=== PATIENT | female | born 1980 | race Caucasian/White ===

== ENCOUNTER → 2025-02-20 | Outpatient (CLI) | payer MEDICAID, MEDICARE, SELFPAY | END | disposition home or self-care (01) | PROVIDERS: Referring Provider Podiatrist; Visit Provider Podiatrist | DX: L97.522 Non-pressure chronic ulcer of other part of left foot with fat layer exposed (principal); L97.512 Non-pressure chronic ulcer of other part of right foot with fat layer exposed | CPT/HCPCS: 87070; 87077; 87186; 87205 ==

== ENCOUNTER 2025-03-01 14:39 | Outpatient (RCR) | payer MEDICARE, MEDICAID, SELFPAY ==
--- NOTE | 2025-03-01 15:40 | WC ---
PHOTO 03/01/25 2ND L LAT TOE
--- NOTE | 2025-03-01 15:41 | WC ---
PHOTO 03/01/25 LEFT 4TH MED TOE
--- NOTE | 2025-03-03 18:18 | PCM.WC.HP ---
History of Present Illness Date of Service: 03/03/25 Chief Complaint: Left foot ulceration History of Wound: Left foot ulceration Progress of Wound: Patient is a 44-year-old diabetic female presenting with concern with a chief complaint of left toe ulceration and fissure to the fourth webspace left lower extremity. Patient was seen at a private office and sent to the [facility] for evaluation and treatment. She has been on doxycycline 100 mg twice daily for the past few days but has a 2-week course. Patient states that her blood sugars well-controlled. No real treatment thus far except for triple antibiotic to the full-thickness wound to the left second toe. She denies any redness or drainage. She denies trauma. Denies constitutional symptoms. No acute complaints at this time. FORMERLY [facility], [facility] Medical History DM type 2 (diabetes mellitus, type 2) Arthritis MRSA (methicillin resistant Staphylococcus aureus) infection Home Medications ?Medication ?Instructions ?Recorded ?Last Taken ?Type buspirone 5 mg tablet 5 mg PO BID 02/24/25 Unknown History cariprazine 1.5 mg capsule 1.5 mg PO QDAY 02/24/25 Unknown History (Vraylar) dexamethasone 1.5 mg tablet 1.5 mg PO QDAY 02/24/25 Unknown History nortriptyline 10 mg capsule 10 mg PO QDAY 02/24/25 Unknown History furosemide 20 mg tablet 20 mg PO DAILY 03/01/25 Unknown History levothyroxine 175 mcg tablet PO 03/01/25 Unknown History potassium chloride 10 mEq 10 meq PO DAILY 03/01/25 Unknown History tablet,extended release(part/cryst) Allergy/AdvReac Type Severity Reaction Status Date / Time codeine Allergy NEEDS Verified 03/01/25 15:03 FOLLOW-UP metformin Allergy NEEDS Verified 03/01/25 15:03 FOLLOW-UP Social History Smoking Status: Former smoker Physical Exam Narrative Vascular: DP and PT pulses are palpable to the bilateral lower extremity. CFT is brisk. No erythema. Skin temperature is warm to warm from proximal ankles to distal digits no focal increase is appreciated. Neurological: Light touch intact. Patient does respond to painful stimuli. Protective station is diminished to the digits but reestablished at the midfoot and ankle. Dermatological: Evidence of full-thickness wound to the left second digit measuring 0.5 x 0.4 x 0.1 cm. Wound base is granular with no sign of infection. No blanchable erythema is appreciated to the left foot. Noticeable fissure to the fourth webspace stable with no sign of infection. Excisional debridement down to including subcutaneous tissue with a number 3 mm dermal curette to the left second digit done without incident. Predebridement measurement was 0.3 x 0.3 x 0.1 cm. Postdebridement measurement 0.5 x 0.4 x 0.1 cm. Musculoskeletal: Muscle strength 5-5 in all quadrants bilateral. No pain to palpation to the left foot full-thickness wounds. No pain with calf compression. Debridement Note Debridement Note Debridement Free Text: Excisional debridement down to including subcutaneous tissue with a number 3 mm dermal curette to the left second digit done without incident. Predebridement measurement was 0.3 x 0.3 x 0.1 cm. Postdebridement measurement 0.5 x 0.4 x 0.1 cm. Post-Debridement Measurements and Additional Note: Post-Debridement Measurements/Treatment - Nurse 1 - General Ulcer Assessment Start: 03/01/25 14:47 Freq: Status: Active Protocol: PRASANTH Activity Type Activity Date Activity User E-sign Co-sign Detail Recorded Client Recorded Date Recorded By Document 03/01/25 15:19 MIRA [id number] 03/01/25 15:23 KW 03/01/25 15:19 - Today's Visit Information Type of service Initial Visit Arrival Mode Ambulatory, Walker Patient Identification Verified (Name & Yes ) History Since Last Visit- (Skip if this is Patient's initial visit) Left Footwear Surgical Shoe with pressure relief insole Right Footwear Surgical Shoe with pressure relief insole Pain Scale: 0-10 Numeric Is Patient Pain Free? Yes Lower Extremity Assessment/ Foot Assessment/ Toe Nail Assessment Right -Posterior Tibial Doppler Monophasic -Dorsalis Pedis Doppler Monophasic -Thick No -Discolored No -Deformed No -Improper Length & Hygeine No Left -Posterior Tibial Doppler Multiphasic -Dorsalis Pedis Doppler Monophasic -Thick No -Discolored No -Deformed No -Improper Length & Hygeine No Communication Assessment Preferred language [place] Pension Fund Manager Required No Able to Read Yes Able to Write Yes Right Hearing Abillity Normal Left Hearing Abillity Normal Visual Assistive Devices Glasses Teaching Assessment Preferences Verbal Barriers to Learning None Readiness To Learn Excellent Willingness to Engage in Self Management High Activies Readiness to Engage in Self Management High Activities Anxiety Level Calm Cooperation Cooperative Perception Coherent Interest in Health Problem Asks Questions Education Importance Acknowledges Need Does Patient Smoke tobacco or other No substances Smoking Status Former smoker Is Patient Diabetic Yes Functional Assessment Recent Decline in Ability to Perform Denies Any Declines Culture/Anabaptism/Marbleizing Machine Tender Cultural/Anabaptism Needs that may affect No Treatment Plan Would you allow our [facility] climate change analyst to No meet you for the purpose of spiritual/ emotional support? Marbleizing Machine Tender to contact place of rastafari No WC - Nurse 1 - General Ulcer Measurement Start: 03/01/25 14:47 Freq: Status: Active Protocol: Activity Type Activity Date Activity User E-sign Co-sign Detail Recorded Client Recorded Date Recorded By Document 03/01/25 15:23 KW [id number] 03/01/25 15:23 KW 03/01/25 15:23 Wound Center Nurse 1 LEFT 4TH TOE FISSURE -Anesthetic Used 5% Lidocaine Gel - Nurse 2 - General Ulcer CM Notes Start: 03/01/25 14:47 Freq: Status: Active Protocol: Activity Type Activity Date Activity User E-sign Co-sign Detail Recorded Client Recorded Date Recorded By Document 03/01/25 15:08 ANNABELLA [id number] 03/01/25 15:13 JF Edit Result 03/01/25 15:08 JF (1) [id number] 03/01/25 15:15 JF (1) LEFT 4TH TOE FISSURE - Clinical Debridement Epidermis / Dermis => Subcutaneous - Tissue Removed Epidermis => Subcutaneous - Debridement - Open, 1st 20sq cm Yes => - Debridement - Subq, 1st 20sq cm => Yes 03/01/25 15:08 Wound Center Nurse 2 -Time 15:11 -Correct Patient Yes -Correct Side, Site, Position Yes -Correct Procedure Yes -Procedure Performed Yes -Type of Procedure Debridement -Clinical Debridement Subcutaneous -Tissue Removed Subcutaneous -Post Debridement (cm) - Length 0.5 -Post Debridement (cm) - Width 0.4 -Post Debridement (cm) - Depth 0.1 -Total Square (Post) (cm) 0.20 -Area of Debridement (cm) - Length 0.5 -Area of Debridement (cm) - Width 0.4 -Total Square (Area) (cm) 0.20 -Tunneling No -Undermining/Tunneling No -Circular Undermining No -Wound/Ulcer Outcome Not Healed -Ulcer Cleansing Rinsed/ Irrigated with Saline -Foul Odor after Cleansing No -Bioengineered Tissue No -Bleeding Controlled with Pressure -Treatment Response Procedure Tolerated Well -Offloading Yes -Type of Offloading Surgical Shoe -Debridement - Subq, 1st 20sq cm Yes Pain Scale: 0-10 Numeric Is Patient Pain Free? Yes - Nurse 3 - General Ulcer D/C NN Start: 03/01/25 14:47 Freq: Status: Active Protocol: Activity Type Activity Date Activity User E-sign Co-sign Detail Recorded Client Recorded Date Recorded By Document 03/01/25 15:30 DL [id number] 03/01/25 15:31 DL 03/01/25 15:30 Wound Care Center Nurse 3 LEFT 4TH TOE FISSURE -Foul Odor after Cleansing No -Other Dressing BETADINE -Primary Dressing Covered/Secured with Dry Gauze, Secured with Tape -Wound Comment(s) Pts compression . Discharged. Treatment Response Procedure Tolerated Well Pain Scale: 0-10 Numeric Is Patient Pain Free? Yes WC - Visit Discharge Discharge Condition Stable Ambulatory Status Ambulatory Transportation Private Auto Assessment/Plan Assessment/Plan (1) Type 2 diabetes mellitus with foot ulcer: CODE(S): E11.621 - Type 2 diabetes mellitus with foot ulcer; L97.509 - Non-pressure chronic ulcer of other part of unspecified foot with unspecified severity PLAN: Patient was examined and evaluated. All findings were discussed with the patient. All questions were answered to the patient satisfaction Excisional debridement down to including subcutaneous tissue with a number 3 mm dermal curette to the left second digit done without incident. Predebridement measurement was 0.3 x 0.3 x 0.1 cm. Postdebridement measurement 0.5 x 0.4 x 0.1 cm. The left foot was cleaned and patted dry. Betadine paint was applied to the full-thickness wound as well as the fissure to the fourth webspace. Patient will perform daily dressing changes and cover with Band-Aid. Educated patient continue strict blood sugar control. Due to the patient having a very stable wound with no concern of infection she will finish the doxycycline as prescribed. She will follow-up with me in private office will be discharged from the wound care center today.
== END 2025-03-14 09:04 | disposition home or self-care (01) ==
LOC: WC 14:39
PROVIDERS: Referring Provider Podiatrist; Visit Provider Podiatrist Foot & Ankle Surgery
DX: E11.621 Type 2 diabetes mellitus with foot ulcer (principal); L97.522 Non-pressure chronic ulcer of other part of left foot with fat layer exposed; Z79.899 Other long term (current) drug therapy; Z87.891 Personal history of nicotine dependence; Z86.14 Personal history of Methicillin resistant Staphylococcus aureus infection; M19.90 Unspecified osteoarthritis, unspecified site
CPT/HCPCS: 11042; 97597; 99203; G0463

== ENCOUNTER → 2025-03-06 | Outpatient (CLI) | payer MEDICARE, MEDICAID, SELFPAY | END | disposition home or self-care (01) | LOC: CVS 14:15 | PROVIDERS: Referring Provider Podiatrist; Visit Provider Podiatrist | DX: I73.89 Other specified peripheral vascular diseases (principal); I87.2 Venous insufficiency (chronic) (peripheral) | CPT/HCPCS: 93970 ==

== ENCOUNTER 2025-04-11 13:01 | Outpatient (RCR) | payer MEDICARE, MEDICAID, SELFPAY | END 2025-04-30 23:59 | LOC: NS 13:01 | PROVIDERS: Referring Provider Podiatrist Foot & Ankle Surgery; Visit Provider Podiatrist Foot & Ankle Surgery | DX: Z71.3 Dietary counseling and surveillance (principal); E11.40 Type 2 diabetes mellitus with diabetic neuropathy, unspecified; I89.0 Lymphedema, not elsewhere classified | CPT/HCPCS: 97802 ==

== ENCOUNTER 2025-05-23 13:38 | Outpatient (RCR) | payer MEDICARE, MEDICAID, SELFPAY | END 2025-05-30 23:59 | LOC: NS 13:38 | PROVIDERS: Referring Provider Podiatrist Foot & Ankle Surgery; Visit Provider Podiatrist Foot & Ankle Surgery | DX: Z71.3 Dietary counseling and surveillance (principal); E11.40 Type 2 diabetes mellitus with diabetic neuropathy, unspecified; I89.0 Lymphedema, not elsewhere classified | CPT/HCPCS: 97803 ==

== ENCOUNTER 2025-06-27 13:41 | Outpatient (RCR) | payer MEDICARE, MEDICAID, SELFPAY | END 2025-06-30 23:59 | LOC: NS 13:41 | PROVIDERS: Referring Provider Podiatrist Foot & Ankle Surgery; Visit Provider Podiatrist Foot & Ankle Surgery | DX: Z71.3 Dietary counseling and surveillance (principal); E11.40 Type 2 diabetes mellitus with diabetic neuropathy, unspecified; I89.0 Lymphedema, not elsewhere classified | CPT/HCPCS: 97803 ==